=== PATIENT | male | born 1990 | race Caucasian/White ===

== ENCOUNTER 2022-11-01 12:41 | Emergency (ER) | payer BC ==
[2022-11-01 12:55] VITALS: BP 136/74
--- NOTE | 2022-11-01 13:12 | ED Physician Documentation ---
PD HPI LOWER EXT INJURY - Stated complaint Stated Complaint: R ANKLE INJURY - Chief complaint Chief Complaint: Trauma Ext - History obtained from History obtained from: Patient - History of Present Illness PD HPI LOW EXT INJURY LOCATION: Right, Ankle Type of injury: Fall, Twist Where injury occurred: [place] Pain level max: 5 Pain level now: 4 - Additional information Additional information: 32-year-old male was running today on trails when he slipped and twisted the right ankle. Has swelling to the lateral aspect of the ankle. Worse with walking, better with rest. No other injuries. PD PAST MEDICAL HISTORY - Past Medical History Past Medical History: No - Past Surgical History Past Surgical History: No - Allergies Allergies/Adverse Reactions: Allergies Allergy/AdvReac Type Severity Reaction Status Date / Time No Known Drug Allergies Allergy Verified 11/01/22 12:55 - Living Situation Living Arrangement: reports: At home - Social History Does the pt have substance abuse?: No PD ED PE NORMAL - Vitals Vital signs reviewed: Yes - General General: Alert and oriented X 3, No acute distress - Derm Derm: Warm and dry - Extremities Extremities: Other (R ankle - Swelling to the lateral malleolus. Tenderness over the lateral malleolus. Otherwise normal examination of the foot, ankle and Achilles tendon. Neurovascularly intact) - Neuro Neuro: Alert and oriented X 3 - Psych Psych: Normal mood, Normal affect Results - Vitals Vitals: Vital Signs - 24 hr 11/01/22 12:52 Temperature 37.0 C Heart Rate 79 Respiratory 16 Rate Blood Pressure 136/74 H O2 Saturation 99 Oxygen O2 Source Room air PD Medical Decision Making - ED course Complexity details: reviewed results, re-evaluated patient, considered dif ferential, d/w patient ED course: 32-year-old male with a right ankle sprain. Does have a small tibiotalar joint effusion. Recommend that he follow-up with his PCP for further care in 1 week and reevaluation. Placed in a Aircast for comfort. Given crutches. Declines pain medication here or for home. Patient counseled regarding signs and symptoms for which I believe and urgent re-evaluation would be necessary. Patient with good understanding of and agreement to plan and is comfortable going home at this time This document was made in part using voice recognition software. While efforts are made to proofread this document, sound alike and grammatical errors may occur. Departure - Departure Disposition: Home, Self Care Clinical Impression: Ankle sprain Qualifiers: Encounter type: initial encounter Involved ligament of ankle: unspecified ligament Laterality: right Qualified Code(s): S93.401A - Sprain of unspecified ligament of right ankle, initial encounter Condition: Good Instructions: ED Sprain Ankle W X Ray Follow-Up: your,doctor in 1 week [Other] Comments: Your x-ray does not show any acute abnormalities today. You appear to have an ankle sprain, you do have a small joint effusion. You should follow-up with your doctor in 1 week for repeat x-rays. You may bear weight as tolerated. I would utilize Motrin and Tylenol as needed for pain. Return if you worsen. IMPRESSION: Lateral ankle sprain. Tibiotalar joint effusion. No evidence acute bony abnormality of the right ankle. Discharge Date/Time: 11/01/22 14:14
--- NOTE | 2022-11-01 13:36 | XRAY Report ---
PROCEDURE: Ankle 3 View RT INDICATIONS: Trauma TECHNIQUE: 3 views of the ankle were acquired. COMPARISON: None FINDINGS: Bones: No fractures or dislocations. Ankle mortise is normally aligned. No suspicious bony lesions . Lateral soft tissue swelling. Soft tissues: Positive tibiotalar joint effusion. Achilles tendon appears normal. IMPRESSION: Lateral ankle sprain. Tibiotalar joint effusion. No evidence acute bony abnormality of t he right ankle. If clinical suspicion and/or symptoms persist, further assessment with repeat plain films or advanced imaging (e.g., CT, MRI, or bone scan) may be helpful for further assessment. Reviewed by: Aaron Castillo MD on 11/01/2022 1:34 PM PST Approved by: Aaron Castillo MD on 11/01/2022 1:34 PM PST Station ID: [id number]
== END 2022-11-01 14:14 | disposition home or self-care (01) ==
LOC: ED 12:41
DX: S93.401A Sprain of unspecified ligament of right ankle, initial encounter (principal); X50.1XXA Overexertion from prolonged static or awkward postures, initial encounter; Y93.02 Activity, running; Y92.828 Other wilderness area as the place of occurrence of the external cause
CPT/HCPCS: 99283